=== PATIENT | female | born 1950 ===

== ENCOUNTER 2017-04-18 09:37 | Day surgery (SDC) | payer MEDICARE ==
[2017-04-05 11:02] VITALS: BMI 26.5
[2017-04-18] MEDS ORDERED: Propofol 10 mg/ml Inj (20 ML) ONE (10:10)
[2017-04-18] MEDS ORDERED: Midazolam 2 MG/2 ML VIAL ONE (10:10)
[2017-04-18] MEDS ORDERED: ePHEDrine 50 mg/ml Inj ONE (10:21)
[2017-04-18] MEDS ORDERED: Phenylephrine 10 mg/ml Inj ONE (10:21)
[2017-04-18] MEDS ORDERED: Lactated Ringer's 1,000 ML IV ONE ×3 (10:23→11:45)
[2017-04-18] MEDS ORDERED: cefOXitin IV 2 gm in Dextrose 2 GM/50 ML BAG IVPB ONE (10:27)
[2017-04-18] MEDS ORDERED: HYDROmorphone 0.5 mg/0.5 ml ISec IVP PRN (11:09)
[2017-04-18] MEDS ORDERED: Lactated Ringer's 1,000 ML IV SCH (11:15)
[2017-04-18 12:44] VITALS: RESP 18
[2017-04-18 13:33] VITALS: BP 148/69; PULSE 71; TEMP 97.8; O2SAT 96
--- NOTE | 2017-04-20 20:56 | OP ---
PROCEDURE DATE: 04/18/2017 PREOPERATIVE DIAGNOSES: A 66-year-old female with postmenopausal thickened endometrium, endometrial polyps and postmenopausal bleeding. POSTOPERATIVE DIAGNOSES: A 66-year-old female with postmenopausal thickened endometrium, endometrial polyps and postmenopausal bleeding. PROCEDURE: Hysteroscopy, MyoSure, D and C. SURGEON: Dr. Haque. ANESTHESIOLOGIST: Dr. Interiano. TYPE OF ANESTHESIA: LMA. FINDINGS: An anteverted uterus approximately 6 weeks' gestation, noted to have an endometrial polyp. COMPLICATIONS: None. ESTIMATED BLOOD LOSS: Approximately 5 mL. INTRAVENOUS FLUID: 500 mL. INS AND OUTS: 100 mL. SPECIMEN: EMC, ECC. DESCRIPTION OF PROCEDURE: The patient was informed of the risk factors, benefits, and alternatives o f procedure. Risk factors include infection, bleeding, damage to surrounding organs and tissue, comp lication from anesthesia and possible . After informed consent was obtained, she was then taken to the operating room, prepped and draped in normal sterile fashion, placed in dorsal lithotomy posi tion. A weighted speculum was placed into the vagina. The anterior lip of the cervix was grasped wi th a single-tooth tenaculum. The uterus was gently sounded to approximately 10 cm. Upon complete ut erine dilation, the scope was then placed. A complete surveillance of the cavity was then performed and the MyoSure device was then activated. Under direct visualization, the endometrial polyp was rem boby and went into the canister which was then later on submitted to pathology. Upon completion of r emoval of all polyps, the scope was then removed together with the MyoSure, and a fractional D and C was then performed. EMC and ECC were performed and submitted to pathology. The patient tolerated th e procedure well. All instruments and lap count were correct x 2. The patient was then taken to the recovery room in stable condition. Lynsey Haque MD cc: [id number] TT: 04/20/2017 20:55:33 ri
== END 2017-04-18 13:20 | disposition home or self-care (01) ==
LOC: C.SDS 09:37
PROVIDERS: ATTEND Obstetrics & Gynecology
DX: N95.0 Postmenopausal bleeding (principal); N85.00 Endometrial hyperplasia, unspecified; D25.9 Leiomyoma of uterus, unspecified
CPT/HCPCS: 58563; 82948; 88305; J0694; J1170; J2001; J2250; J2370; J2704; J3010; J7120